=== PATIENT | female | born 1980 | race Hispanic/Latino ===

== ENCOUNTER 2021-03-09 17:36 | Emergency (ER) | payer OTHER, SELFPAY ==
[2021-03-09] VITALS (7 sets, daily range): BP systolic 106–134; BP diastolic 45–112; PULSE 69–96; RESP 18–25; TEMP 36.4; O2SAT 96–100
--- NOTE | ~2021-03-09 | US_ITS ---
EXAMINATION: US OB <=14 wk fetus w TV DATE: 03/09/2021 23:14 INDICATION: Vaginal bleeding during first trimester TECHNIQUE: Real-time pelvic transabdominal and transvaginal ultrasound was performed. COMPARISON: None. FINDINGS: The uterus measures 8.7 x 6.0 x 6.5 cm. There is a 4 mm fluid collection in the lower uteri ne segment. No visible pole is identified. The right ovary is not visualized however no right a dnexal abnormality is seen. The left ovary measures 1.6 x 1.4 x 1.7 cm. There is normal vascular flow in the left ovary. There is no free fluid in the pelvis. IMPRESSION: 1. 4 mm fluid collection in the lower uterine segment which could reflect an early intrauterine pregn cass. If the patient is clinically stable, recommend followup with serial beta-hCG and ultrasound. Reviewed, dictated and finalized at location A. IMPRESSION: 1. 4 mm fluid collection in the lower uterine segment which could reflect an ea rly intrauterine . If the patient is clinically stable, recommend foll owup with serial beta-hCG and ultrasound.
--- NOTE | 2021-03-09 17:48 | PC.NURSE ---
Pt does not speak Syriac. stratus is in use in another room. Did not ask pt the [place] Suicide scale do to language differences.
--- NOTE | 2021-03-09 21:13 | ED.FEMALEGU ---
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 Patient states that she is 4 weeks . Patient states that she had 1 large clot that came out prior to arrival. MD elicited complaint: vaginal bleeding Severity: mild Quality of pain: cramping and dull Related Data Allergies Allergy/AdvReac Type Severity Reaction Status Date / Time No Known Allergies Allergy Verified 03/09/21 20:22 Review of Systems Review of Systems: All systems reviewed & are unremarkable except as noted in HPI and below Constitutional: Constitutional: Denies body ache(s), Denies chills, Denies excessive sweating, Denies fatigue, Denies fever(s), Denies headache(s), Denies lethargy, Denies malaise, Denies weakness and Denies weight loss Eyes: Eyes: Denies blurry vision, Denies change in vision and Denies loss of vision ENT: Denies dizziness, Denies ear discharge, Denies headache(s), Denies lip swelling, Denies epistaxis, Denies nasal congestion, Denies neck pain, Denies throat swelling and Denies tongue swelling Cardiovascular: Cardiovascular: Denies chest pain, Denies chest pain at rest, Denies chest pain with activity, Denies diaphoresis, Denies rapid heart rate, Denies edema, Denies irregular heart rhythm, Denies lightheadedness, Denies palpitations, Denies dyspnea and Denies dyspnea on exertion Respiratory: Respiratory: Denies chest congestion, Denies cough, Denies hemoptysis, Denies dyspnea and Denies dyspnea on exertion Gastrointestinal: Gastrointestinal: Denies abdominal pain, Denies melena, Denies hematochezia, Denies diarrhea, Denies nausea, Denies vomiting and Denies hematemesis Musculoskeletal: Musculoskeletal: Denies abnormal gait, Denies deformity, Denies joint swelling, Denies limited range of motion, Denies neck pain and Denies numbness Neurologic: Denies Abnormal speech present, Denies abnormal gait, Denies confusion, Denies dizziness, Denies headache(s), Denies focal weakness, Denies loss of vision, Denies numbness, Denies Other visual disturbances, Denies Sensory deficit (Neuro) and Denies weakness Psychiatric: Psychiatric: Denies confusion, Denies depression, Denies auditory hallucinations, Denies homicidal ideation and Denies suicidal ideation Endocrine: Endocrine: Denies cold intolerance, Denies excessive sweating, Denies fatigue, Denies heat intolerance and Denies palpitations Hematologic/Lymphatic: Hematologic/Lymphatic: Denies easy bleeding and Denies easy bruising Allergic/Immunologic: Allergic/Immunologic: Denies lip swelling, Denies throat swelling and Denies tongue swelling PMFSH Comments Past medical history: None Family history: Noncontributory Social history non-smoker no EtOH or drug use Exam Const: General: cooperative, healthy appearing, comfortable, no acute distress, well developed, alert and awake; No confusion Orientation/consciousness: oriented to person, oriented to place, oriented to time, patient oriented x3 and No confusion Limitations: no limitations HENMT: Head: normal to inspection, normocephalic and atraumatic Ears: hearing grossly normal bilaterally, TM normal on the right and TM normal on the left General nose exam: Normal external nose present, Normal nares present and No nasal discharge present Face and sinus: normal facial exam Mouth: Yes Normal oral and palatal mucosa present, Yes lip normal, Yes tongue normal and Yes oropharynx normal Throat: posterior oropharynx normal, tonsils normal and uvula midline Eyes: General: appearance normal, both eyes and all related structures Pupils: Equal, round and reactive pupils present EOM: EOMs intact bilaterally Neck: Neck: normal visua
[2021-03-09] MEDS: SODIUM CHLORIDE 0.9% IV 1,000 ML 999 ML IV CONT (21:33)
[2021-03-09 21:46] LABS: Basophils Absolute Auto 0.1 K/mm3 (0.0-0.1); Basophils Percent Auto 0.5 % (0.2-1.2); Eosinophils Absolute Auto 0.2 K/mm3 (0-0.3); Eosinophils Percent Auto 1.8 % (0-4.4); Hematocrit 39.3 % (37.0-47.0); Hemoglobin 13.6 g/dL (12.0-15.0); Immature Granulocyte Absolute 0.04 K/mm3 (0.00-0.031); Immature Granulocyte Percent A 0.4 % (0-0.5); Lymphocytes Absolute Auto 2.97 K/mm3 (0.9-3.2); Lymphocytes Percent Auto 27.2 % (18.3-44.2); Mean Corpuscular HGB Conc 34.6 g/dl (32-36); Mean Corpuscular Hemoglobin 28.6 pg (26-34); Mean Corpuscular Volume 82.6 fl (80-100); Mean Platelet Volume 10.1 fl (7.4-10.4); Monocytes Absolute Auto 0.6 K/mm3 (0.1-0.6); Monocytes Percent Auto 5.9 % (2.6-8.5); Neutrophils Percent Auto 64.2 % (45.5-73.1); Platelet Count Result 288 k/mm3 (150-375); Red Blood Count 4.76 M/mm3 (4.2-5.4); Red Cell Distribution Width 13.8 % (11.5-14.5); White Blood Count 10.9 K/mm3 (4.5-10.0)
[2021-03-09 21:59] LABS: Alanine Aminotransferase 17 U/L (4-35); Albumin Level 4.4 g/dL (3.5-5.1); Alkaline Phosphatase 83 U/L (38-126); Anion Gap 6 mmol/L (8-16); Aspartate Amino Transferase 19 U/L (14-36); Bilirubin,Total 0.2 mg/dL (0.2-1.3); Blood Urea Nitrogen 17 mg/dL (7-17); Calcium 9.5 mg/dL (8.4-10.2); Carbon Dioxide 28 mmol/L (22-30); Chloride 106 mmol/L (98-107); Estimated Glomerular Filt Rate > 60; Glucose 93 mg/dL (65-110); Potassium 4.1 mmol/L (3.4-5.0); Sodium 140 mmol/L (137-145)
[2021-03-09 22:47] LABS: Add Urine Microscopic? YES; Appearance Urine Cloudy (Clear); Bacteria Urine Trace /hpf; Bilirubin Urine Negative (Negative); Blood Urine 3+ (Negative); Color Urine Yellow (Yellow); Glucose Urine UA Negative (Negative); Ketones Urine Negative (Negative); Leukocyte Esterase Ur Trace LEU/UL (Negative); Mucus Urine Rare /lpf; Nitrate Urine Negative (Negative); Protein Urine 2+ mg/dL (Negative); RBC Urine >75 /hpf (0-2); Squamous Epithelial Cell Urine Moderate /hpf (Few); Urobilinogen Urine Negative mg/dL (<2.0); WBC Urine 16-20 /hpf
[2021-03-10 00:02] VITALS: BP 104/63; PULSE 72; RESP 15; O2SAT 99
== END 2021-03-10 00:04 | disposition home or self-care (01) ==
PROVIDERS: Emergency Provider Emergency Medicine; PCP Registered Nurse
DX: O03.9 Complete or unspecified spontaneous abortion without complication (principal)
CPT/HCPCS: 36415; 76801; 76817; 80053; 81001; 84702; 85025; 87086; 87088; 96360; 99284; J7030

== ENCOUNTER 2022-11-22 16:16 | Outpatient (CLI) | payer OTHER, SELFPAY ==
--- NOTE | ~2022-11-22 | MM_ITS ---
EXAMINATION: MM screening jenna BI w juan HISTORY: Baseline screening mammogram TECHNIQUE: Craniocaudal and mediolateral oblique 3-D tomosynthesis images were obtained and synthetic 2-D images were generated. CAD analysis was submitted and interpreted. COMPARISON: None, baseline BREAST PARENCHYMAL COMPOSITION: There are scattered areas of fibroglandular density. FINDINGS: No suspicious mass, calcification, or architectural distortion are identified in either myra ast to suggest malignancy. IMPRESSION: 1. No mammographic evidence of malignancy. 2. Recommend routine screening mammography in one year. BI-RADS Category 1: Negative Reviewed, dictated and finalized at location A.
== END 2022-11-22 16:17 | disposition home or self-care (01) ==
LOC: ANHIMG 16:18
PROVIDERS: PCP Registered Nurse; Visit Provider Registered Nurse
DX: Z12.31 Encounter for screening mammogram for malignant neoplasm of breast (principal)
CPT/HCPCS: 77063; 77067

== ENCOUNTER 2024-06-29 06:49 | Outpatient (CLI) | payer OTHER, SELFPAY ==
--- NOTE | ~2024-06-29 | MR_ITS ---
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 TECHNIQUE: MRI of the breasts perform using standard protocol pre-and post IV contrast with the follo wing sequences: Axial T2 STIR, axial T1, axial vibrant T1 with fat suppression precontrast and multip hasic postcontrast. 12 cc MultiHance administered intravenously. COMPARISON: Mammogram dated 11/22/2022 FINDINGS: The breasts are heterogeneously dense. There are no abnormalities on the precontrast sequen cash. There are small cysts of the right breast. There is mild bilateral symmetric background parenchy mal enhancement. There is a 6 mm mass in the upper outer quadrant of the right breast containing fat centrally with rapid persistent enhancement, compatible with a benign intramammary lymph node. No heather dence of signal abnormalities in the axillary or internal mammary node distributions. LEFT BREAST: The breasts are heterogeneously dense. No signal abnormalities on precontrast sequences. There is mild bilateral symmetric background parenchymal enhancement. No enhancing lesions followi ng contrast administration. No areas of enhancement meeting threshold criteria on CAD analysis. No evidence of signal abnormalities in the axillary or internal mammary node distributions.] IMPRESSION: 1: Right breast: Negative. No evidence of malignancy. BI-RADS category 1. Recommend annual mammo graphy follow-up. 2: Left breast: Negative. No evidence of malignancy. BI-RADS category 1. Recommend annual mammogr aphy follow-up. Follow-up MRI may be useful for supplementing mammographic evaluation as clinically indicated. Reviewed, dictated and finalized at location B. WORKER IMPRESSION: 1: Right breast: Negative. No evidence of malignancy. BI-RADS category 1. Recommend annual mammography follow-up. 2: Left breast: Negative. No evidence of malignancy. BI-RADS category 1. Re commend annual mammography follow-up. Follow-up MRI may be useful for supplementing mammographic evaluation as clinic ally indicated.
--- OUTSIDE RECORDS SUMMARY | 2024-06-29 06:51 | XMS_ITS | Clinical Summary ---
Author Organization [facility] Address [address] [place] [address] Care Team Providers Care U.[place]. Senator Name Role Phone RamyaDilip keller STEPH Primary Care Provider Tre Christopher DO Unavailable [phone] Allergies No known active allergies Medications UNKNOWN TO PATIENT Take 1 tablet by mouth daily Oral Contraceptive Pill Active UNKNOWN TO PATIENT Take 1 tablet by mouth daily OTC Allergy Medication Active vit no.124/iron/fo lic ( VITAMIN ORAL) Take 1 tablet by mouth daily Active HYDROcodone-ac etaminophen (NORCO) 5-325 mg per tabletIndicati ons:Pain Take 1 tablet by mouth every 6 (six) hours as needed for pain 10 tablet Active Active Problems Problem Noted Date Diagnosed Date Encounter for consultation for female sterilizat ion 03/27/2021 Immunizations Name Administration Dates Next Due Influenza, Quadrivalent, Split, Intramuscular ,03/07/2017 Influenza, Quadrivalent, Spl it, Preservative Free, Intramuscular 02/22/2021,01/28/2019 Influenza, Trivalent, IM (MDV) 05/06/2014 Pfizer SARS-CoV-2 Monovalent Vaccination (12+ Yrs) PURPLE 08/29/2020,08/08/2020 Tdap 11/02/2014,09/10/2014 Surgical History Surgery Date Site/Laterality Comments SECTION 10/30/2014 DILATION AND CURETTAGE OF UTERUS 08/27/2016 Medical History Medical History Date Comments Cyst of left ovary 12/05/2020 Miscarriage 10/28/2020 anemia Oligohydramnios 2014 Chronic non-seasonal allergic rhinitis Social History Tobacco Use Types Packs/Day Years Used Date Smoking Tobacco: Every Day Cigarettes 0 Smokeless Tobacco: Never AUDIT-C Answer Date Recorded Q1: How often do you have a drink containing alc ohol? Monthly or less 05/01/2021 Q2: How many drinks containi ng alcohol do you have on a typical day when you are drinking? 1 or 2 05/01/2021 Q3: How often do you have si x or more drinks on one occasion? 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 Gender Identity Not on file Sexual Orientation Not on file Obstetrics History Para Term AB IAB SAB Ectopic Multiple Livin g Live Births 0 Last Filed Vital Signs Vital Sign Reading Time Taken Comments Blood Pressure 112/73 05/01/2021 10:16 AM WIPING CLOTH CUTTER Pulse 71 05/01/2021 10:16 AM WIPING CLOTH CUTTER Temperature 36.6 C (97.8 F) 05/01/2021 9:46 AM WIPING CLOTH CUTTER Respiratory Rate 16 05/01/2021 10:16 AM WIPING CLOTH CUTTER Oxygen Saturation 96% 05/01/2021 10:16 AM WIPING CLOTH CUTTER Inhaled Oxygen Concentration - - Weight 60.3 kg (133 lb) 05/01/2021 6:57 AM WIPING CLOTH CUTTER Height 162.6 cm (5' 4 ) 05/01/2021 6:57 AM WIPING CLOTH CUTTER Body Mass Index 22.83 05/01/2021 6:57 AM WIPING CLOTH CUTTER Plan of Treatment Health Maintenance Due Date Last Done Comments Breast Cancer Screening-Mammogram 1982 Cervical Cancer Screening 1982 Depression Screening 1982 Hepatitis C Screening 1982 Pneumococcal vaccine <65 (1 of 2 - PCV) 1988 Varicella Vaccines (1 of 2 - 13+ 2-dose series) 1995 Hepatitis B Screening 2000 Regular Well Visit/Exam 18-64 2000 Covid-19 Vaccine (2023- season) 2024 08/29/2020, 08/08/2020 Influenza Vaccine (#1) 2024 , 02/24/2020, 01/28/2019, Additional history exists DTaP/Tdap/Td Vaccine (3 - Td or Tdap) 11/02/2024 11/02/2014, 09/10/2014 HPV Vaccines Aged Out No longer eligi ble based on patient's age to complete this topic Medical Devices Implanted Type Area Conveyor System Dispatcher Device Identifier Shelf Expiration Date Model / Serial / Lot [employer] Surgical [id number] Filshie Soft Line Upper Jaw Fallopian Tube Small Clip Internal Latex Free - [id number] Implanted:Qty: 2 on 05/01/2021 by Tre Christopher DO at [facility] Bilateral: Fallopian Tube [employer] 05/19/2022 [id number] / [id number] [place] [id number] [facility] Care Teams U.[place]. Senator Relationship Specialty Start Date End Date Dilip Bui NP [address] [place], [place] [phone] PCP - General Nurse Practitioner 12/05/20 Tre Christopher DO [address] [place], [place] [phone] Consulting Physician Obstetrics and Gynecology 04/28/21
--- OUTSIDE RECORDS SUMMARY | 2024-06-29 06:51 | XMS_ITS | Referral Summary ---
Author Organization [facility] Address [address] [place] [address] Care Team Providers Care Acute Care Physician Name Role Phone Dilip Bui STEPH Primary Care Provider [phone] Tre Christopher DO Unavailable [phone] Allergies No known active allergies Medications [...] hours as needed for pain 10 tablet 1 Active Active Problems Problem Noted Date Diagnosed Date Encounter for consultation for female sterilizat ion 03/27/2021 Immunizations Name Administration Dates Next Due Influenza, Quadrivalent, Split, Intramuscular ,03/07/2017 Influenza, Quadrivalent, Spl it, Preservative Free, Intramuscular 02/22/2021,01/28/2019 Influenza, Trivalent, IM (MDV) 05/06/2014 Pfizer SARS-CoV-2 Monovalent Vaccination (12+ Yrs) PURPLE 08/29/2020,08/08/2020 Tdap 11/02/2014,09/10/2014 Social History Tobacco Use Types Packs/Day Years [...] on file 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 Gender Identity Not on file Sexual Orientation Not on file Last Filed Vital Signs Vital Sign Reading Time Taken Comments Blood Pressure 112/73 05/01/2021 10:16 AM PACKING MACHINE PILOT CAN ROUTER Pulse 71 05/01/2021 10:16 AM PACKING MACHINE PILOT CAN ROUTER Temperature 36.6 C (97.8 F) 05/01/2021 9:46 AM PACKING MACHINE PILOT CAN ROUTER Respiratory Rate 16 05/01/2021 10:16 AM PACKING MACHINE PILOT CAN ROUTER Oxygen Saturation 96% 05/01/2021 10:16 AM PACKING MACHINE PILOT CAN ROUTER Inhaled Oxygen Concentration - - Weight 60.3 kg (133 lb) 05/01/2021 6:57 AM PACKING MACHINE PILOT CAN ROUTER Height 162.6 cm (5' 4 ) 05/01/2021 6:57 AM PACKING MACHINE PILOT CAN ROUTER Body Mass Index 22.83 05/01/2021 6:57 AM PACKING MACHINE PILOT CAN ROUTER Plan of Treatment Not on file Medical Devices Implanted Type Area Metal Off Bearer Device Identifier Shelf Expiration Date Model / Serial / Lot [employer] [id number] Filshie Soft Line Upper Jaw Fallopian Tube Small Clip Internal Latex Free - [id number] Implanted:Qty: 2 on 05/01/2021 by Tre Christopher DO at [facility] Clip Bilateral: Fallopian Tube [employer] 05/19/2022 [id number] / [id number] Insurance IDPA [facility] Care Teams Acute Care Physician Relationship Specialty Start Date End Date Dilip Bui NP [address] [place] [id number] PCP - General Nurse Practitioner 12/05/20 Tre Christopher DO [address] [place] [id number] Consulting Physician Obstetrics and Gynecology 04/28/21
--- OUTSIDE RECORDS SUMMARY | 2024-06-29 06:51 | XMS_ITS | Clinical Summary ---
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 Gender Identity Not on file Sexual Orientation Not on file Plan of Treatment Health Maintenance Due Date Last Done Comments Hepatitis C Virus (HCV) Screening 1982 TdaP Immunization 1982 Hepatitis B Immunization (1 of 3 - 19+ 3-dose series) 2001 Pap Smear 2003 Cervical Cancer Screening (CCS) 2012 HPV/Cotest 2012 Discussion re Starting/Frequ ency of Mammograms 2022 Influenza Immunization (#1) 2024 SARS-COV-2 Immunization ( season) 2024 Respiratory Syncytial Virus (RSV) Immunization (Adult) (1 - 1-dose 75+ series) 2057 Meningococcal Immunization (ACWY) Aged Out No longer eligible based on patient's age to complete this topic Pneumococcal Immunization Combined Aged Out No longer eligible based on patient's age to complete this topic Rotavirus Immunization Aged Out No lo nger eligible based on patient's age to complete this topic
== END 2024-06-29 06:50 | disposition home or self-care (01) ==
PROVIDERS: PCP Registered Nurse; Visit Provider Registered Nurse
DX: R92.8 Other abnormal and inconclusive findings on diagnostic imaging of breast (principal)
CPT/HCPCS: 77049; A9577; C8908

== ENCOUNTER 2024-10-02 08:14 | Emergency (ER) | payer SELFPAY ==
--- NOTE | 2024-10-02 08:21 | ED_ITS ---
HPI - URI/Sore Throat General Chief Complaint: Upper Respiratory Infection Stated Complaint: cough/ shallow breathing Time Seen by Provider: 10/02/24 08:15 Source: patient Mode of arrival: ambulatory Limitations: no limitations History of Present Illness HPI Narrative: Patient is a 44-year-old female who presents with 2 days of sore throat, cough, feeling short of breath with exertion. Denies any fever, chills, ear pain, nausea, vomiting, diarrhea. Has taken allergy medicine and cough medicine with no relief. Related Data Allergies Allergy/AdvReac Type Severity Reaction Status Date / Time No Known Allergies Allergy Verified 10/02/24 08:51 Review of Systems Review of Systems: All systems reviewed & are unremarkable except as noted in HPI and below Constitutional: Constitutional: Denies chills, Denies fatigue, Denies fever(s), Denies headache(s), Denies malaise and Denies weakness Eyes: Eyes: Denies blurry vision, Denies itchy eyes and Denies loss of vision ENT: Denies otalgia, Denies headache(s), Denies nasal congestion, Denies sinus pain and Reports sore throat Cardiovascular: Cardiovascular: Denies chest pain, Denies irregular heart rhythm and Denies dyspnea Respiratory: Respiratory: Reports cough, Denies dyspnea and Reports dyspnea on exertion Gastrointestinal: Gastrointestinal: Denies abdominal pain, Denies diarrhea, Denies nausea and Denies vomiting Musculoskeletal: Musculoskeletal: Denies back pain, Denies myalgias and Denies arthralgias Integumentary/Breasts: Skin/Breast: Denies pruritus and Denies rash Neurologic: Denies headache(s), Denies loss of vision and Denies weakness Psychiatric: Psychiatric: Reports no additional psychiatric complaints Endocrine: Endocrine: Denies fatigue Allergic/Immunologic: Allergic/Immunologic: Denies itchy eyes PMFSH Comments At time of signature, agree with nursing past medical, surgical, social and family history. There is no relevant family history pertinent to the presenting complaint. Exam Const: General: cooperative, healthy appearing, comfortable, no acute distress and well nourished Nutritional Appearance: well nourished Orientation/consciousness: patient oriented x3 Limitations: no limitations HENMT: Head: normal to inspection, normocephalic and atraumatic Ears: hearing grossly normal bilaterally, external ears normal, TM's normal bilaterally, EAC's normal and no periauricular adenopathy Face/Nose/Sinus: Normal external nose present, Abnormal mucous membranes and turbinates present erythematous bilateral and diffuse, normal facial exam, sinuses nontender and face symmetric Face and sinus: normal facial exam, sinuses nontender and face symmetric Mouth: Yes Normal oral and palatal mucosa present, Yes lip normal, Yes tongue normal, Yes Normal salivary glands and ducts present, Yes oropharynx normal and Yes moist mucous membranes Teeth and gingiva: dentition normal Throat: posterior oropharynx normal, tonsils normal, uvula midline and postnasal drainage Eyes: General: appearance normal, both eyes and all related structures Alignment and Position: alignment normal and position normal Periorbital: periorbital findings normal Eyelids: eyelids normal Pupils: Equal, round and reactive pupils present Neck: Neck: normal visual inspection, full ROM, no lymphadenopathy and supple Chest: Chest palpation & inspection: normal inspection of the chest and normal palpation of entire chest wall Resp: Effort & Inspection: normal respiratory effort and able to speak in complete sentences Auscultation: no crackles, no rales, no rhonchi and wheezes inspiratory wheezes and throughout Cardio: Rate: regular rate Rhythm: regular rhythm Heart sounds: S1 normal heart sound present and S2 normal heart sound present GI: Inspection: normal to inspection Skin: General skin exam: normal color and no rashes or lesions noted Neuro: General: patient oriented x3 and moves all extremities Cranial nerves: Yes Equal, round and reactive pupils present Speech: normal speech Gait exam (Neuro): Normal gait present Extrem: General: normal to inspection, full ROM and no edema Psych: Appearance: grossly normal and well kempt Mental Status: mental status grossly normal Speech and movement: Normal speech and movement present Affect: normal affect Attitude: cooperative Thought process: Normal thought process present Course Course Emergency Course: Discharge instructions reviewed with patient, as well as provided in writing per nursing staff. The instructions also include specific and strict return/GO TO THE ER as well as f/u information. All questions have been answered, and the patient deny any further questions with discharge and discharge plan. Portions of this record may have been created with voice recognition software Level of Care: [facility] Visit Vital Signs Vital signs: Vital Signs Temperature 36.3 C L 10/02/24 08:25 Pulse Rate 105 H 10/02/24 08:25 Respiratory Rate 14 10/02/24 08:25 Blood Pressure 128/62 10/02/24 08:25 Pulse Oximetry 95 10/02/24 08:25 Temperature 36.3 C L 10/02/24 08:25 Pulse Rate 105 H 10/02/24 08:25 Respiratory Rate 14 10/02/24 08:25 Blood Pressure 128/62 10/02/24 08:25 Pulse Oximetry 95 10/02/24 08:25 Reviewed MDM - URI/Sore Throat MDM Narrative Medical decision making narrative: Pt well hydrated appearing, in no respiratory distress, hemodynamically stable. Recommend supportive care. The patient is stable at time of discharge the clinical impression was discussed and the patient was given the opportunity to ask questions, which were addressed as completely as possible given the information available at present. Anticipatory guidance and return to care precautions were discussed and the importance of primary care follow-up was stressed and encouraged. The patient voiced understanding of the plan, indications to return, and the need for follow-up. Exam findings show no acute concerns or changes Patient is appropriate for outpatient treatment and follow-up. Differential diagnosis considered: Barney virus, strep pharyngitis, allergic rhinitis, upper respiratory tract infection, sinusitis, rhinosinusitis, nasopharyngitis. viral pharyngitis, otitis media, otitis externa, otitis effusion, foreign body, cerumen impaction, viral syndrome, and influenza. Medical Records Attestation: I reviewed the patient's medical records. Lab Data Attestation: I reviewed the patient's lab results. Labs: Lab Results 10/02/24 Range/Units 09:10 POC Influenza A Ag Negative (Negative) POC Influenza B Ag Negative (Negative) POC SARS CoV-2 Ag Negative (Negative) POC Grp A Strep Screen Negative (Negative) Discharge Plan Discharge Clinical Impression: Upper respiratory infection Qualifiers: URI type: unspecified viral URI Qualified Code(s): J06.9 - Acute upper respiratory infection, unspecified Patient Disposition: Home Condition: Stable Instructions: Upper Respiratory Infection (ED) Additional Instructions: Utilice Tessalon Perles según sea necesario para la tos. Utilice un inhalador con espaciador según sea necesario. Gamble hisopado rápido para estreptococos oziel negativo hoy en [facility]. Se enviará un cultivo de garganta al laboratorio para realizar más pruebas. Si la prueba es positiva, recibirá david llamada telefónica dentro de las 48 horas y se le iniciará el tratamiento con el antibiótico adecuado en tyron momento. Hannah resultados de COVID y gripe son negativos. Es probable que hannah síntomas se deban a david enfermedad viral, que no se trata con antibióticos. Los síntomas virales pueden durar hasta varias semanas. - Para el dolor y la fiebre, puede janis: Tylenol 650-1000 mg por vía oral cada 4-6 horas. No exceda la dosis de 4000 mg en 24 horas. Advil (ibuprofeno) 600 mg por vía oral cada 6 horas. No exceda la dosis de 2400 mg en 24 horas. 8 AM: Tylenol 11 AM: Ibuprofeno 2 PM: Tylenol 5 PM: Ibuprofeno 8 PM: Tylenol 11 PM: Ibuprofeno 2 AM: Tylenol 5 AM: Ibuprofeno - Los antihistamínicos yahir Benadryl/Zyrtec por la noche y Claritin/Shireen karol el día pueden ayudar a mejorar los síntomas. - Use Flonase dos veces al día karol 5 yvonne y luego a diario para ayudar a reducir la inflamación y secar los senos paranasales. - También puede usar Sudafed en el mostrador de la farmacia (12 o 24 horas). Asegúrese de beber judit agua con estos medicamentos, al menos 237 ml (8 onzas) con cada dosis, y es importante beber de 8 a 10 vasos de agua al día. El agua es un descongestionante natural. - Coma y elpidio alimentos fáciles de tragar, yahir té, sopa o paletas heladas. Enjuagues bucales yahir gárgaras con agua salada y/o puede usar anestésico tópico (p. ej., aerosol Chloraseptic) o pastillas para aliviar la sequedad o el dolor de garganta. Lavarse las rafiq con frecuencia o usar desinfectante de rafiq es david de las mejores maneras de prevenir la propagación de la infección. Usar un vaporizador o humidificador por la noche también ayudará a diluir las secreciones y a expectorar la flema. Llame a gamble médico de cabecera y programe david janna de seguimiento en 3 yvonne. Si la tos empeora, presenta fiebre superior a 39 °C, escalofríos con temblores, ritmo cardíaco acelerado, dificultad para respirar o siente que respira mucho más rápido de lo habitual, llame a gamble médico de cabecera o acuda a urgencias. Patient Language: Turkmen Prescriptions: New benzonatate 100 mg capsule 100 mg PO BID PRN (Reason: cough) Qty: 14 0RF albuterol sulfate 90 mcg/actuation HFA aerosol inhaler 2 puff inhalation QID PRN (Reason: shortness of breath or wheezing) Qty: 6.7 0RF fluticasone propionate [Flonase Allergy Relief] 50 mcg/actuation spray,suspension 1 spray intranasal DAILY Qty: 16 0RF Rx Instructions: administer into each nostril (DME) Aerochamber MV Spacer See Rx Instructions .Route Qty: 1 0RF Rx Instructions: As directed Follow-up/Referrals: Ramya,STEPH Cherry [Primary Care Provider] - 3 Days Stand Alone Forms: Work/School Release IP Time of Disposition: 09:46
[2024-10-02 08:25] VITALS: BP 128/62; PULSE 105; RESP 14; TEMP 36.3; O2SAT 95
[2024-10-02 09:42] LABS: EDCOVIDSCREEN Negative (Negative); EDINFLUASCREEN Negative (Negative); EDINFLUBSCREEN Negative (Negative); EDSTREPNEGPOS1 Negative (Negative)
== END 2024-10-02 09:53 | disposition home or self-care (01) ==
PROVIDERS: Emergency Provider Nurse Practitioner Family; PCP Registered Nurse
DX: J06.9 Acute upper respiratory infection, unspecified (principal); Z20.822 Contact with and (suspected) exposure to COVID-19
CPT/HCPCS: 87081; 87426; 87804; 87880; 99213; G0463